=== PATIENT | female | born 1950 | race Caucasian/White ===

== ENCOUNTER → 2017-10-20 14:25 | Outpatient (CLI) | payer MEDICARE, SELFPAY | PROVIDERS: PCP Internal Medicine; Visit Provider Internal Medicine Cardiovascular Disease | DX: R06.83 Snoring; E66.01 Morbid (severe) obesity due to excess calories; I11.9 Hypertensive heart disease without heart failure; G47.10 Hypersomnia, unspecified | CPT/HCPCS: G0399 ==

== ENCOUNTER → 2018-06-13 09:32 | Outpatient (CLI) | payer MEDICARE, SELFPAY ==
--- NOTE | 2018-06-13 09:41 | US_ITS ---
Right upper Quadrant pain, patient had cholecystectomy several years ago Ordering Physician:Gary Thacker Patient Age: 67 years Comparison: 12/19/2009 CT abdomen and pelvis Findings: Pancreas:Unremarkable. No obvious mass or abnormal fluid collection. No ductal dilatation Liver:No focal liver lesions demonstrated. Homogeneous echogenicity. No intrahepatic biliary ductal dilatation evident there is diffuse increased and somewhat coarsened echogenicity consistent with diffuse fatty infiltration. There are no focal lesions. Right Kidney:Unremarkable. Normal size and echogenicity. No hydronephrosis. The right kidney measures 10.7 x 5.5 x 7.3 cm and shows mild uniform cortical thinning. Gallbladder: Post cholecystectomy Impression:Moderate diffuse hepatic steatosis, mild uniform renal cortical thinning right kidney
== END ==
PROVIDERS: PCP Internal Medicine; Visit Provider Internal Medicine
DX: R10.11 Right upper quadrant pain (principal)
CPT/HCPCS: 76705

== ENCOUNTER → 2018-06-21 14:54 | Outpatient (CLI) | payer MEDICARE, SELFPAY ==
--- NOTE | 2018-06-21 14:56 | CT_ITS ---
CT abdomen pelvis wo con CLINICAL INDICATION: Right upper quadrant pain ITS.REASON: ABD PAIN ORDERING PHYSICIAN: Gary Thacker PATIENT AGE: 67 years COMPARISON: 12/19/2009 TECHNIQUE: Axial images obtained with sagittal and coronal reformats. All CT scans at the facility use one or more dose reduction, viz: automated exposure control, ma/kV adjustment per patient size (including targeted exams where dose is matched to indication, i.e. head), or iterative reconstruction technique. PROCEDURE: Oral Contrast: None IV Contrast: None . FINDINGS: No acute finding in the lung bases. Postcholecystectomy change. The liver, spleen, adrenal glands, and kidneys show no acute finding. There is mild stranding of the right perinephric renal fat which is nonspecific. A small fat density is noted in the anterior aspect of the right kidney at 6 mm and may represent an angiomyolipoma having benign findings. There has been prior gastric surgery. There is postsurgical change of the intra-abdominal wall with significant thinning and eventration as before. No intestinal obstruction or free air is evident. No evidence of appendicitis or diverticulitis. No abdominal or pelvic mass or abnormal fluid collection. There are degenerative changes in the lumbar spine. A small sclerotic focus involves the right aspect of the sacrum in fairly and may represent bone island not significant change. There are posthysterectomy changes. No pelvic mass abnormal fluid collection or focal inflammatory change. IMPRESSION: No change with no acute finding. Postsurgical changes from prior gastric surgery, cholecystectomy, and hysterectomy with eventration of the anterior abdominal wall
--- NOTE | 2018-06-21 15:15 | HMH.ITSHM ---
Current Home Medications as stated by this patient Kendra Rosario or claims representative. []ASPIRIN LIPITOR VITAMIN D CO Q-10 CARDURA FENOFIBRATE LASIX AMARYL NOVOLOG FLEXPEN INSULIN PEN NEEDLE IMDUR SYNTHORID,LEVOTHROID VICTOZA COZAAR GLUCOPHAGE TOPROL NITROSTAT FISH OIL PRILOSEC K-DUR,KLOR-CON
== END ==
PROVIDERS: PCP Internal Medicine; Visit Provider Internal Medicine
DX: R10.11 Right upper quadrant pain (principal); R10.84 Generalized abdominal pain
CPT/HCPCS: 74176

== ENCOUNTER → 2018-07-04 15:05 | Outpatient (POV) | payer MEDICARE, SELFPAY | PROVIDERS: Visit Provider Dermatology | DX: Z00.00 Encounter for general adult medical examination without abnormal findings (principal) ==

== ENCOUNTER → 2018-09-18 11:27 | Outpatient (POV) | payer MEDICARE, SELFPAY | PROVIDERS: PCP Nurse Practitioner Family; Visit Provider Nurse Practitioner Family | DX: Z00.00 Encounter for general adult medical examination without abnormal findings (principal) ==

== ENCOUNTER → 2019-04-09 14:19 | Outpatient (POV) | payer MEDICARE, SELFPAY | PROVIDERS: Visit Provider Nurse Practitioner Family | DX: Z00.00 Encounter for general adult medical examination without abnormal findings (principal) ==

== ENCOUNTER → 2019-08-24 09:48 | Outpatient (CLI) | payer MEDICARE, SELFPAY ==
--- NOTE | 2019-08-24 | CA_ITS ---
APPROVED REPORT EXAM: Comprehensive 2D, Doppler, and color-flow Echocardiogram Medical Science Liaison: Enedelia Sevilla RT(R) Ht: 5 ft 7 in Wt: 250lbs BSA: 2.22 BP: 171/77 mmHg Indications: HTN, obesity, DM, SOB, GERD, hyperlipidemia 2D Dimensions LVOT 1.96 cm (M/F) 1.5-2.5 M-Mode Dimensions RVDd 2.44 cm (0.9-2.6) LVDd 5.11 cm (3.5-5.7) LVDs 3.51 cm (3.5-5.7) IVSd 1.18 cm (0.6-1.1) PWd 0.91 cm (0.6-1.1) EF (Teich) 58.80% FS 31.30% EDV (Teich) 124.40 mL ESV (Teich) 51.20 mL LV Diastology E/A Ratio 0.94 Mitral Valve MV A Velocity 124.00 (40-130 cm/s) Left Ventricle Left atrium is mildly enlarged, left ventricle is normal size, mild concentric left ventricular hypertrophy, visually estimated ejection fraction 55% with no regional wall motion abnormality, grade 1 diastolic dysfunction seen with tissue Doppler evidence of raise left atrial pressure. Right Ventricle Right atrium and right ventricle are mildly enlarged with normal contractility. Aortic Valve Aortic valve is minimally thickened and fibrosed, there is no aortic stenosis or aortic insufficiency. Mitral Valve Mitral valve is grossly normal, there is mild mitral regurgitation. Tricuspid Valve Tricuspid valve is grossly normal, there is mild tricuspid regurgitation. Pulmonic Valve Pulmonic valve is poorly visualized. Great Vessels Aortic root is normal size. Pericardium Trivial pericardial effusion noted. Conclusion 1. Mild biatrial enlargement, normal left ventricular size, mild concentric left ventricular hypertrophy, visually estimated ejection fraction 55% with no regional wall motion abnormality, grade 1 diastolic dysfunction seen with tissue Doppler evidence of raise left atrial pressure. 2. Mildly enlarged right ventricle with normal contractility. 3. Mild mitral and tricuspid regurgitation. 4. Trivial pericardial effusion noted. Electronically signed by : Flip Hamm, 08/24/2019 11:52:36
--- NOTE | 2019-08-24 11:21 | XR_ITS ---
PROCEDURE: XR CHEST 2V CLINICAL HISTORY: SOA,HTN COMPARISON: CXR CHEST(2 VIEWS-NOT PORTABLE) from 07/12/2016 FINDINGS: The cardiomediastinal silhouette and pulmonary vascularity are within normal limits. The lungs are clear without infiltrates, suspicious nodules, or pleural effusions. Degenerative changes thoracic IMPRESSION: No acute findings. Dictated by: Timoteo Stewart MD 08/24/2019 11:58 Electronically signed by Timoteo Stewart MD in [place] 08/24/2019 11:58
== END ==
PROVIDERS: PCP Internal Medicine; Visit Provider Internal Medicine
DX: R06.02 Shortness of breath (principal)
CPT/HCPCS: 71046; 93306; 94060; 94727; 94729

== ENCOUNTER → 2019-09-17 14:05 | Outpatient (POV) | payer MEDICARE, SELFPAY | PROVIDERS: Visit Provider Nurse Practitioner Family | DX: Z00.00 Encounter for general adult medical examination without abnormal findings (principal) ==

== ENCOUNTER → 2019-11-30 15:45 | Outpatient (CLI) | payer MEDICARE, SELFPAY | PROVIDERS: Visit Provider Urology | DX: N39.0 Urinary tract infection, site not specified (principal); N35.92 Unspecified urethral stricture, female | CPT/HCPCS: 87086; 87088; 87186 ==

== ENCOUNTER → 2019-12-27 14:46 | Outpatient (CLI) | payer MEDICARE, SELFPAY | PROVIDERS: Visit Provider Urology | DX: N30.30 Trigonitis without hematuria (principal) | CPT/HCPCS: 87086 ==

== ENCOUNTER → 2020-03-24 13:59 | Outpatient (POV) | payer MEDICARE, SELFPAY | PROVIDERS: Visit Provider Nurse Practitioner Family | DX: Z00.00 Encounter for general adult medical examination without abnormal findings (principal) ==

== ENCOUNTER → 2021-03-30 14:44 | Outpatient (CLI) | payer MEDICARE, SELFPAY ==
[2021-03-30 15:55] LABS: Basophils % 0.5 % (0.1-2.0); Eosinophils # 0.1 K/mm3 (0.0-0.4); Eosinophils % 1.7 % (0.1-12.0); Hematocrit 42.2 % (37.0-47.0); Hemoglobin 13.4 g/dL (12.2-16.2); Lymphocytes % 31.5 % (10-50); Mean Corpuscular HGB Conc 31.8 g/dL (31.8-35.4); Mean Corpuscular Hemoglobin 30.8 pg (27.0-31.2); Mean Corpuscular Volume 96.9 fl (81-99); Mean Platelet Volume 9.2 fl (7.4-10.4); Monocytes # 0.3 K/mm3 (0.1-1.0); Monocytes % 4.9 % (1.7-9.3); Neutrophils % 61.4 % (37.0-80.0); Platelet Count 232 K/mm3 (142-424); Red Blood Count 4.35 M/mm3 (4.20-5.40); Red Cell Distribution Width 13.5 % (11.5-17.5); White Blood Count 6.4 K/mm3 (4.8-10.8)
[2021-03-30 16:21] LABS: Microalbumin < 6.000 mg/L (0-16.7)
[2021-03-30 16:37] LABS: Alanine Aminotransferase 26 U/L (12-78); Albumin Level 4.3 g/dl (3.5-5.0); Albumin/Globulin Ratio 2.2 (1.1-1.8); Alkaline Phosphatase 65 U/L (38-126); Anion Gap 10.4 mEq/L (5-15); Aspartate Amino Transferase 28 U/L (14-36); Bilirubin,Total 0.6 mg/dl (0.2-1.3); Blood Urea Nitrogen 16 mg/dl (7-17); Calcium 9.8 mg/dl (8.4-10.2); Carbon Dioxide 27 mmol/L (22.0-30.0); Chloride 104 mmol/L (98-107); Chol/HDL Ratio 2.3 (1-3.5); Cholesterol 126 mg/dl (140-200); Estimated Glomerular Filt Rate 99 ml/min (>60); GFR (African American) 120 ML/MIN (>60); Glucose 86 mg/dl (74-100); HDL Cholesterol 55 mg/dl (40-60); Potassium 4.4 mmoL/L (3.5-5.1); Sodium 137 mmol/L (136-145); Total Protein,Serum 6.3 g/dl (6.3-8.2); Triglycerides 103 mg/dl (30-150); VLDL Cholesterol 21 mg/dL (0-40)
[2021-03-30 16:48] LABS: Direct LDL Cholesterol 54.94 mg/dL (100-129)
[2021-03-30 16:50] LABS: Hemoglobin A1C 5.2 % (4.0-6.0)
[2021-03-30 16:54] LABS: Free T4 (Free Thyroxine) 1.12 ng/dl (0.78-2.19)
[2021-03-30 17:08] LABS: Thyroid Stimulating Hormone 0.94 uIU/mL (0.465-4.68)
== END ==
PROVIDERS: PCP Internal Medicine; Visit Provider Internal Medicine
DX: I10 Essential (primary) hypertension (principal); E11.59 Type 2 diabetes mellitus with other circulatory complications; E78.5 Hyperlipidemia, unspecified; E03.9 Hypothyroidism, unspecified; Z79.4 Long term (current) use of insulin
CPT/HCPCS: 36415; 80053; 80061; 82043; 83036; 84439; 84443; 85025

== ENCOUNTER → 2021-10-20 13:25 | Outpatient (POV) | payer MEDICARE, SELFPAY | PROVIDERS: Visit Provider Dermatology | DX: Z00.00 Encounter for general adult medical examination without abnormal findings (principal) ==

== ENCOUNTER → 2021-11-10 12:59 | Outpatient (POV) | payer MEDICARE, SELFPAY | PROVIDERS: Visit Provider Dermatology | DX: Z00.00 Encounter for general adult medical examination without abnormal findings (principal) ==

== ENCOUNTER → 2021-11-24 13:27 | Outpatient (POV) | payer MEDICARE, SELFPAY | PROVIDERS: Visit Provider Dermatology | DX: Z00.00 Encounter for general adult medical examination without abnormal findings (principal) ==

== ENCOUNTER → 2022-01-14 15:20 | Outpatient (CLI) | payer MEDICARE, SELFPAY ==
[2022-01-14 17:28] LABS: Basophils # 0.1 K/mm3 (0-0.2); Basophils % 0.9 % (0.1-2.0); Chloride 101 mmol/L (98-107); Eosinophils # 0.1 K/mm3 (0.0-0.4); Eosinophils % 1.1 % (0.1-12.0); Hematocrit 41.4 % (37.0-47.0); Hemoglobin 13.7 g/dL (12.2-16.2); Lymphocytes # 1.9 K/mm3 (0.7-4.5); Lymphocytes % 27.1 % (10-50); Mean Corpuscular HGB Conc 33.1 g/dL (31.8-35.4); Mean Corpuscular Hemoglobin 31.4 pg (27.0-31.2); Mean Corpuscular Volume 94.9 fl (81-99); Monocytes # 0.3 K/mm3 (0.1-1.0); Monocytes % 4.1 % (1.7-9.3); Neutrophils # 4.7 K/mm3 (1.8-7.8); Neutrophils % 66.8 % (37.0-80.0); Platelet Count 267 K/mm3 (142-424); Potassium 4.5 mmoL/L (3.5-5.1); Red Blood Count 4.36 M/mm3 (4.20-5.40); Red Cell Distribution Width 13.4 % (11.5-17.5); Sodium 138 mmol/L (136-145)
[2022-01-14 17:30] LABS: Blood Urea Nitrogen 33 mg/dl (7-17)
[2022-01-14 17:31] LABS: Alanine Aminotransferase 22 U/L (12-78); Albumin/Globulin Ratio 1.9 (1.1-1.8); Alkaline Phosphatase 83 U/L (38-126); Anion Gap 14.5 mEq/L (5-15); Aspartate Amino Transferase 28 U/L (14-36); Bilirubin,Total 0.3 mg/dl (0.2-1.3); Calcium 10.3 mg/dl (8.4-10.2); Carbon Dioxide 27 mmol/L (22.0-30.0); Cholesterol 137 mg/dl (140-200); Estimated Glomerular Filt Rate 83 ml/min (>60); GFR (African American) 100 ML/MIN (>60); Globulin 2.1 g/dL (1.3-3.2); Glucose 105 mg/dl (74-100); Total Protein,Serum 6.1 g/dl (6.3-8.2); Triglycerides 325 mg/dl (30-150); VLDL Cholesterol 65 mg/dL (0-40)
[2022-01-14 17:32] LABS: Chol/HDL Ratio 3.2 (1-3.5); HDL Cholesterol 43 mg/dl (40-60)
== END ==
PROVIDERS: PCP Family Medicine; Visit Provider Family Medicine
DX: I10 Essential (primary) hypertension (principal); E11.9 Type 2 diabetes mellitus without complications; Z79.4 Long term (current) use of insulin
CPT/HCPCS: 80053; 80061; 83036; 84443; 85025

== ENCOUNTER → 2022-03-31 10:48 | Outpatient (CLI) | payer MEDICARE, SELFPAY ==
--- NOTE | 2022-03-31 10:49 | MM_ITS ---
PROCEDURE INFORMATION: Exam: MG Bilateral Screening 3D Mammography Exam date and time: 03/31/2022 10:41 AM Age: 71 years old Clinical indication: Screening examination TECHNIQUE: Imaging protocol: Bilateral Screening tomosynthesis and 2D mammography including computer-aided detection (CAD) when performed. COMPARISON: 1. MG DMDXUAVR DIG MAMM-DX UNI A/VW-RT W/CAD 02/04/2017 2:42 PM 2. MG DMSB DIG MAMM-SCREEN LOIS W/CAD 01/24/2017 5:01 PM FINDINGS: MAMMOGRAPHY: Breast composition: There are scattered areas of fibroglandular density. Mass: None. Architectural distortion: None. Calcifications: No suspicious calcifications. Asymmetric density: None. Skin thickening: None. Axillary adenopathy: None. IMPRESSION: No mammographic evidence of malignancy. Annual screening is recommended unless otherwise clinically indicated. ASSESSMENT: BI-RADS Category 1: Negative
== END ==
PROVIDERS: PCP Family Medicine; Visit Provider Family Medicine
DX: Z12.31 Encounter for screening mammogram for malignant neoplasm of breast (principal)
CPT/HCPCS: 77063; 77067

== ENCOUNTER → 2022-04-29 21:53 | Outpatient (CLI) | payer MEDICARE, SELFPAY | PROVIDERS: PCP Student in an Organized Health Care Education/Training Program; Visit Provider Student in an Organized Health Care Education/Training Program | DX: N39.0 Urinary tract infection, site not specified (principal) | CPT/HCPCS: 87086 ==

== ENCOUNTER → 2022-11-04 11:08 | Outpatient (CLI) | payer MEDICARE, SELFPAY ==
--- NOTE | 2022-11-04 | CA_ITS ---
APPROVED REPORT EXAM: Comprehensive 2D, Doppler, and color-flow Echocardiogram Electrodynamicist: Brittaney Guardado CRT Ht: 5 ft 7 in Wt: 213lbs BSA: 2.08 BP: 170/70 mmHg Indications: Shortness of Breath, Diabetes, Obesity, Hyperlipidemia, Hypertension/HDD 2D Dimensions LVOT 1.97 cm (M/F) 1.5-2.5 LA Volume 60.70 mL LA Volume Index 29.18 mL/m2 (M/F) 16-34 M-Mode Dimensions RVDd 3.32 cm (0.9-2.6) LA Diam 4.07 cm (1.9-4.0) LVDd 5.39 cm (3.5-5.7) Ao Diam 3.88 cm (2.0-3.7) LVDs 3.18 cm (3.5-5.7) IVSd 1.29 cm (0.6-1.1) PWd 0.93 cm (0.6-1.1) EF (Teich) 71.40% FS 41.00% EDV (Teich) 140.70 mL TAPSE 2.71 (<1.7) ESV (Teich) 40.30 mL LV Diastology E Decel Time 213.00 (160-240 msec) E/A Ratio 0.9 MED E' 6.20 (< 7 cm/sec) MED A' 10.80 cm/s E'/MED E' Ratio 14.90 (>14) LAT E' 7.90 (<10 cm/sec) LAT A' 9.40 cm/s E/LAT E' Ratio 11.70 (>14) Aortic Valve AI PHT 411.00 ms AO Peak GR. 10.50 mmHg Mitral Valve MV E Max Heraclio. 92.00 (40-130 cm/s) MV A Velocity 104.00 (40-130 cm/s) E/A Ratio 0.89 MV Decel. Time 213.00 (160-240 ms) MV PHT 62.00 ms Tricuspid Valve TR P. Velocity 206.00 cm/s RAP Estimate 10.00 mmHg RVSP 27.00 mmHg Left Ventricle The left ventricle is normal size. The left ventricular systolic function is normal. The left ventricular ejection fraction is within the normal range. There is increased LV wall thickness. There is normal LV segmental wall motion. The left ventricular diastolic function is normal. LVEF is 60%. Right Ventricle The right ventricle is normal size. The right ventricular systolic function is normal. Atria The left atrium size is normal. The right atrium size is normal. There is no Doppler evidence of interatrial shunt. Aortic Valve The aortic valve is mildly thickened. There is no aortic valvular stenosis. Trace aortic regurgitation. Mitral Valve The mitral valve is mildly thickened. No evidence of mitral valve stenosis. Trace mitral regurgitation. Tricuspid Valve The tricuspid valve leaflets are thin and pliable. Trace tricuspid regurgitation. RVSP is 20-25 mmHg. Pulmonic Valve The pulmonary valve is normal in structure. Trace pulmonic regurgitation. Great Vessels The aortic root is normal in size. The ascending aorta is normal in size. IVC is dilated but collapses >50% with inspiration. RA pressure is estimated at 8 mmHg. Pericardium There is no pericardial effusion. Other Information Study Quality: Fair Conclusion Normal biventricular systolic function. No significant valvular stenosis or regurgitation. Electronically signed by : Lizbeth Marx, 11/05/2022 15:39:06
== END ==
PROVIDERS: PCP Student in an Organized Health Care Education/Training Program; Visit Provider Internal Medicine
DX: R06.02 Shortness of breath (principal); I10 Essential (primary) hypertension
CPT/HCPCS: 93306

== ENCOUNTER 2023-06-07 20:48 | Outpatient (CLI) | payer MEDICARE, SELFPAY ==
[2023-06-07 17:58] LABS: Basophils % 0.7 % (0.1-2.0); Eosinophils # 0.1 K/mm3 (0.0-0.4); Eosinophils % 1.1 % (0.1-12.0); Hematocrit 45.8 % (37.0-47.0); Hemoglobin 14.7 g/dL (12.2-16.2); Lymphocytes # 1.9 K/mm3 (0.7-4.5); Lymphocytes % 33.5 % (10-50); Mean Corpuscular HGB Conc 32.1 g/dL (31.8-35.4); Mean Corpuscular Hemoglobin 31.4 pg (27.0-31.2); Mean Corpuscular Volume 97.7 fl (81-99); Mean Platelet Volume 9.2 fl (7.4-10.4); Monocytes # 0.3 K/mm3 (0.1-1.0); Monocytes % 4.5 % (1.7-9.3); Neutrophils # 3.4 K/mm3 (1.8-7.8); Neutrophils % 60.3 % (37.0-80.0); Platelet Count 241 K/mm3 (142-424); Red Blood Count 4.69 M/mm3 (4.20-5.40); Red Cell Distribution Width 13.8 % (11.5-17.5); White Blood Count 5.7 K/mm3 (4.8-10.8)
[2023-06-07 18:36] LABS: Hemoglobin A1C 5.5 % (4.0-6.0)
[2023-06-07 18:47] LABS: Chloride 106 mmol/L (98-107)
[2023-06-07 18:48] LABS: Potassium 4.3 mmoL/L (3.5-5.1); Sodium 140 mmol/L (136-145)
[2023-06-07 18:50] LABS: Alanine Aminotransferase 22 U/L (12-78); Alkaline Phosphatase 79 U/L (38-126); Anion Gap 9.3 mEq/L (5-15); Aspartate Amino Transferase 29 U/L (14-36); Bilirubin,Total 0.6 mg/dl (0.2-1.3); Blood Urea Nitrogen 20 mg/dl (7-17); Carbon Dioxide 29 mmol/L (22.0-30.0); Cholesterol 246 mg/dl (140-200); Estimated Glomerular Filt Rate 122 ml/min (>60); GFR (African American) 148 ML/MIN (>60); Triglycerides 132 mg/dl (30-150); VLDL Cholesterol 26 mg/dL (0-40)
[2023-06-07 18:51] LABS: Albumin Level 4.1 g/dl (3.5-5.0); Albumin/Globulin Ratio 1.8 (1.1-1.8); Calcium 9.7 mg/dl (8.4-10.2); Chol/HDL Ratio 5.5 (1-3.5); Globulin 2.3 g/dL (1.3-3.2); Glucose 96 mg/dl (74-100); HDL Cholesterol 45 mg/dl (40-60); Total Protein,Serum 6.4 g/dl (6.3-8.2)
[2023-06-07 19:16] LABS: Direct LDL Cholesterol 129.86 mg/dL (100-129)
[2023-06-07 19:26] LABS: Thyroid Stimulating Hormone 4.39 uIU/mL (0.465-4.68)
[2023-06-07 20:23] LABS: 25-OH Vitamin D, Total 125 ng/mL (30-100)
== END 2023-06-07 23:59 ==
LOC: LAB.DROPOF 20:49
PROVIDERS: PCP Nurse Practitioner Family; Visit Provider Nurse Practitioner Family
DX: E11.9 Type 2 diabetes mellitus without complications (principal); I10 Essential (primary) hypertension; E55.9 Vitamin D deficiency, unspecified; R53.83 Other fatigue; Z68.33 Body mass index [BMI] 33.0-33.9, adult; Z79.4 Long term (current) use of insulin; Z79.84 Long term (current) use of oral hypoglycemic drugs
CPT/HCPCS: 80053; 80061; 82306; 83036; 84443; 85025

== ENCOUNTER 2023-06-20 22:50 | Outpatient (CLI) | payer MEDICARE, SELFPAY | END 2023-06-20 23:59 | LOC: LAB.DROPOF 22:54 | PROVIDERS: PCP Family Medicine; Visit Provider Family Medicine | DX: J02.9 Acute pharyngitis, unspecified (principal) | CPT/HCPCS: 87070 ==

== ENCOUNTER 2024-06-29 09:01 | Outpatient (CLI) | payer MEDICARE, SELFPAY ==
[2024-06-29 18:27] LABS: Basophils % 0.6 % (0.1-2.0); Eosinophils # 0.1 Kmm3 (0.0-0.4); Eosinophils % 1.6 % (0.1-12.0); Hematocrit 43.8 % (37.0-47.0); Hemoglobin 14.7 g/dL (12.2-16.2); Lymphocytes # 1.6 K/mm3 (0.7-4.5); Lymphocytes % 30.6 % (10-50); Mean Corpuscular HGB Conc 33.6 g/dL (31.8-35.4); Mean Corpuscular Hemoglobin 30.4 pg (27.0-31.2); Mean Corpuscular Volume 90.7 fl (81-99); Mean Platelet Volume 10.6 fl (7.4-10.4); Monocytes # 0.3 K/mm3 (0.1-1.0); Monocytes % 5.9 % (1.7-9.3); Neutrophils # 3.1 K/mm3 (1.8-7.8); Neutrophils % 61.1 % (37.0-80.0); Nucleated Red Blood Cells # 0 10^3/uL; Nucleated Red Blood Cells % 0 %; Platelet Count 213 K/mm3 (142-424); Red Blood Count 4.83 M/mm3 (4.20-5.40); Red Cell Distribution Width 13.2 % (11.5-17.5); Red Cell Distribution Width-SD 43.4 fL; White Blood Count 5.1 K/mm3 (4.8-10.8)
[2024-06-29 18:33] LABS: Creatinine,Urine Random 95 mg/dL (Not Estab.)
[2024-06-29 18:37] LABS: Microalbumin/Creatinine Ratio 12.2
[2024-06-29 19:05] LABS: Albumin Level 4.2 g/dl (3.5-5.0); Chloride 108 mmol/L (98-107); Sodium 139 mmol/L (136-145)
[2024-06-29 19:07] LABS: Alanine Aminotransferase 19 U/L (12-78); Aspartate Amino Transferase 24 U/L (14-36); Blood Urea Nitrogen 14 mg/dl (7-17); Carbon Dioxide 24 mmol/L (22.0-30.0); Estimated Glomerular Filt Rate 122 ml/min (>60); GFR (African American) 147 ML/MIN (>60)
[2024-06-29 19:08] LABS: Albumin/Globulin Ratio 1.9 (1.1-1.8); Alkaline Phosphatase 71 U/L (38-126); Bilirubin,Total 0.7 mg/dl (0.2-1.3); Calcium 9.5 mg/dl (8.4-10.2); Chol/HDL Ratio 3.2 (1-3.5); Cholesterol 193 mg/dl (140-200); Globulin 2.2 g/dL (1.3-3.2); Glucose 95 mg/dl (74-100); HDL Cholesterol 60 mg/dl (40-60); Total Protein,Serum 6.4 g/dl (6.3-8.2); Triglycerides 97 mg/dl (30-150); VLDL Cholesterol 19 mg/dL (0-40)
[2024-06-29 19:20] LABS: Direct LDL Cholesterol 99.79 mg/dL (100-129)
[2024-06-29 19:34] LABS: 25-OH Vitamin D, Total > 126 ng/mL (30-100)
[2024-06-29 19:38] LABS: Thyroid Stimulating Hormone 7.77 uIU/mL (0.465-4.68)
== END 2024-06-29 23:59 | disposition home or self-care (01) ==
LOC: LAB.DROPOF 07-02 09:02
PROVIDERS: PCP Family Medicine; Visit Provider Family Medicine
DX: I10 Essential (primary) hypertension (principal); N39.0 Urinary tract infection, site not specified; E55.9 Vitamin D deficiency, unspecified; E11.9 Type 2 diabetes mellitus without complications; Z79.84 Long term (current) use of oral hypoglycemic drugs
CPT/HCPCS: 80053; 80061; 82043; 82306; 82570; 84443; 85025; 87086

== ENCOUNTER 2024-08-01 15:50 | Outpatient (CLI) | payer MEDICARE, SELFPAY ==
--- NOTE | 2024-08-01 15:54 | XR_ITS ---
FINAL REPORT CLINICAL HISTORY: arm pain FINDINGS: RIGHT HUMERUS Two views were obtained. There is no fracture or dislocation. The joint spaces appear normal. No soft tissue abnormality is identified. IMPRESSION: No acute process. Reviewed, Interpreted and Dictated by Selvin Farris MD Transcribed by Tamela Cheng Authenticated and [facility]
--- NOTE | 2024-08-01 15:54 | XR_ITS ---
FINAL REPORT CLINICAL HISTORY: arm pain FINDINGS: RIGHT SHOULDER Three views were obtained. There is no fracture or dislocation. There are mild degenerative changes of the AC joint. No soft tissue abnormality is identified. IMPRESSION: No acute process. Reviewed, Interpreted and Dictated by Selvin Farris MD Transcribed by Tamela Cheng Authenticated and [facility]
== END 2024-08-01 23:59 | disposition home or self-care (01) ==
LOC: RAD 15:51
PROVIDERS: PCP Family Medicine; Visit Provider Family Medicine
DX: M79.621 Pain in right upper arm (principal); M19.011 Primary osteoarthritis, right shoulder
CPT/HCPCS: 73030; 73060

== ENCOUNTER 2024-11-07 11:50 | Outpatient (CLI) | payer MEDICARE, SELFPAY ==
[2024-11-07 17:36] LABS: Albumin Level 4.3 g/dl (3.5-5.0); Chloride 111 mmol/L (98-107); Potassium 4.1 mmoL/L (3.5-5.1); Sodium 141 mmol/L (136-145)
[2024-11-07 17:39] LABS: Alanine Aminotransferase 18 U/L (12-78); Albumin/Globulin Ratio 2.0 (1.1-1.8); Alkaline Phosphatase 70 U/L (38-126); Anion Gap 10.1 mEq/L (5-15); Aspartate Amino Transferase 25 U/L (14-36); Bilirubin,Total 0.5 mg/dl (0.2-1.3); Blood Urea Nitrogen 17 mg/dl (7-17); Carbon Dioxide 24 mmol/L (22.0-30.0); Creatinine,Serum 0.50 mg/dl (0.52-1.04); Estimated Glomerular Filt Rate 121 ml/min (>60); GFR (African American) 147 ML/MIN (>60); Globulin 2.1 g/dL (1.3-3.2); Total Protein,Serum 6.4 g/dl (6.3-8.2)
[2024-11-07 17:40] LABS: Calcium 9.4 mg/dl (8.4-10.2); Glucose 105 mg/dl (74-100)
[2024-11-07 18:11] LABS: Thyroid Stimulating Hormone 2.13 uIU/mL (0.465-4.68)
[2024-11-07 19:38] LABS: 25-OH Vitamin D, Total 105 ng/mL (30-100)
[2024-11-07 21:06] LABS: Hemoglobin A1C 5.4 % (4.0-6.0)
--- OUTSIDE RECORDS SUMMARY | 2024-11-08 12:09 | XMS_ITS | Clinical Summary ---
[facility] Address [address] [place] [address] Care Team Providers Care Crucible Packer Name Role Phone Gary Thacker MD Primary Care Provider [phone] Allergies No known active allergies Medications aspirin 81 MG tablet Take by mouth. 01/12/20 12 Active Coenzyme Q10 (CO Q-10) 100 MG capsule Take by mouth. 01/12/20 12 Active [place]-3 Fatty Acids (FISH OIL) 1000 MG capsule capsule Take by mouth. 01/12/20 12 Active Cholecalciferol (VITAMIN D) 1000 UNITS tablet Take by mouth. 03/01/20 14 Active nitroglycerin (NITROSTAT) 0.[address] 1 tablet under the tongue every 5 (five) minutes as needed for chest pain. Dissolve 1 tablet under the as needed for chest pain 25 tablet 3 10/03/19 16 Active isosorbide mononitrate (IMDUR) 30 MG 24 hr tablet 01/19/20 17 Active Insulin Pen Needle 32G X 5 MM misc 1 Units 6 (Six) Times a Day. 600 each 1 06/17/19 18 Active atorvastatin (LIPITOR) 40 MG tablet Take 1 tablet by mouth Daily. 90 tablet 1 07/30/19 18 Active fenofibrate 160 MG tablet Take 1 tablet by mouth Daily. 90 tablet 1 07/30/19 18 Active levothyroxine (SYNTHROID, LEVOTHROID) 75 MCG tablet Take 1 tablet by mouth Daily. 30 tablet 1 07/30/19 18 Active metFORMIN (GLUCOPHAGE) 500 MG tablet Take 2 tablets by mouth 2 (Two) Times a Day. 360 tablet 1 07/30/19 18 Active metoprolol succinate XL (TOPROL-XL) 50 MG 24 hr tablet Take 1 tablet by mouth 2 (Two) Times a Day. 180 tablet 1 07/30/19 18 Active Additional Information Patient taking differently: 100 mgOral 2 Times Daily, Reported on 11/18/2017 omeprazole (priLOSEC) 40 MG capsule Take 1 capsule by mouth Daily. 90 capsule 1 07/30/19 18 Active potassium chloride (K-DUR,KLOR-CON) 20 MEQ CR tablet Take 1 tablet by mouth Daily. 90 tablet 1 07/30/19 18 Active glimepiride (AMARYL) 4 MG tablet Take 1 tablet by mouth 2 (Two) Times a Day. 180 tablet 1 08/28/19 18 Active furosemide (LASIX) 40 MG tablet Take 40 mg by mouth 2 (Two) Times a Day. Active Liraglutide (VICTOZA) 18 MG/3ML solution pen-injector injection Inject 1.2 mg under the skin into the appropriate area as directed Daily. 6 pen 3 05/20/19 Active doxazosin (CARDURA) 2 MG tablet Take 2 mg by mouth 2 (Two) Times a Day. Active NOVOLOG FLEXPEN 100 UNIT/ML solution pen-injector sc pen Inject 30 units TID with meals 90 mL 1 01/05/20 19 Active ONE TOUCH ULTRA TEST test strip Test blood sugars TID 300 each 3 01/05/20 19 Active losartan (COZAAR) 100 MG tablet Take 1 tablet by mouth Daily. 90 tablet 1 01/05/20 19 Active busPIRone (BUSPAR) 10 MG tablet Take 10 mg by mouth 2 (Two) Times a Day. 5 11/07/19 19 Active FLUZONE HIGH-DOSE 0.5 ML suspension prefilled syringe injection PHARMACIST ADMINISTERED IMMUNIZATION ADMINISTERED AT TIME OF DISPENSING 0 11/07/19 19 Active SHINGRIX 50 MCG/0.5ML reconstituted suspension PHARMACIST ADMINISTERED IMMUNIZATION ADMINISTERED AT TIME OF DISPENSING 0 11/07/19 19 Active ONE TOUCH ULTRA TEST test strip Test blood sugars 3 times per day 300 each 3 01/05/20 19 Active Active Problems Problem Noted Date Diagnosed Date Forrest's esophagus with low grade dysplasia Assessment & Plan (06/11/2016 11:30 AM EDT): Pending evaluation Dr Prather Has dysplasia and they want to do ablation but insurance will not cover Acute cystitis 11/28/2015 Acute myocardial infarction 11/28/2015 Abnormal liver function tests 08/01/2015 Overview (08/01/2015): Impression: 11/08/2014 - update flp Impression: 07/05/2014 - normal at last check , continue to monitor Impression: 07/06/2013 - normal at last check , continue to monitor; Assessment & Plan (11/18/2017 3:33 PM EDT): Patient states intermittent binge drinking (vodka) - associates with severe increase in appetite and binging on food including sweets Calories assoc with alcohol reviewed and encouraged her to discontinue this She does not have to drink every night She attributes this to failure to lose weight Assessment & Plan (07/29/2017 11:33 AM EDT): Check cmp Assessment & Plan (01/28/2017 10:58 AM EST): Having some ruq abdominal pain Trying to lose weight Assessment & Plan (10/15/2016 11:48 AM EDT): Liver function tests normal last check Assessment & Plan (08/01/2015 1:00 PM EDT): Check cmp Arthritis 08/01/2015 Atherosclerosis of coronary artery 08/01/2015 Diabetes mellitus 08/01/2015 Overview (08/01/2015): Impression: 11/08/2014 - blood sugar 191, hgn a1c 6.1% average sugar 120 is up to date with preventive care Impression: 07/05/2014 - blood sugar is 90, hgn a1c is 6.1% (average 120) is up to date with preventive care bp is good Impression: 04/19/2014 - blood sugar is 138 and hgn a1c is 6.1% (average 120) restart invokana at 100 mg daily and samples are provided stop hctz- discussed rationale for this with her continue victoza continue lisinpril but stop benazepril- duplicate therapy email update 1-2 weeks work on diet and exercise, weight loss Impression: 03/01/2014 - d/c glyburide add invokana increase victoza 1.2 mg daily continue metformin use insulin prn Impression: 11/09/2013 - blood sugar and average sugar are good is up to date with preventive care continue to monitor and adjust work on diet - discussed lose it or my fitness pal as a way to track calories/carbs Impression: 07/06/2013 - blood sugar is good, hgn a1c 6.6% (average 135 or so) doing well overall, no c/o is up to date with preventive care, no change in neuropathy ur alb due next visit no changes other than more intensive work on diet and weight loss (would improve diabetes, arthritis, etc) continue to monitor and recc my fitness pal or lose it apps; Assessment & Plan (01/05/2019 8:33 AM EDT): Blood sugar and 90 day average sugar reviewed Results for orders placed or performed in visit on 01/04/19 POC Glycosylated Hemoglobin (Hb A1C) Result Value Ref Range Hemoglobin A1C 5.2 % POC Glucose Fingerstick Result Value Ref Range Glucose 60 (A) 70 - 130 mg/dL Average sugar is normal Low sugar currently - treated with juice She was fasting today Is utd with eye exam No neuropathy, callus or ulcer Continue diet and add exercise F/u 3-4 months Assessment & Plan (05/19/2018 1:29 PM EST): Blood sugar and 90 day average sugar reviewed Results for orders placed or performed in visit on 05/19/18 POC Glycosylated Hemoglobin (Hb A1C) Result Value Ref Range Hemoglobin A1C 5.8 % POC Glucose Fingerstick Result Value Ref Range Glucose 128 70 - 130 mg/dL Is doing well overall No low sugars Is utd with eye exam No neuropathy, callus or ulcer Ur alb neg and due now Assessment & Plan (11/18/2017 3:32 PM EDT): Blood sugar and 90 day average sugar reviewed Results for orders placed or performed in visit on 11/18/17 POC Glycosylated Hemoglobin (Hb A1C) Result Value Ref Range Hemoglobin A1C 5.8 % POC Glucose Fingerstick Result Value Ref Range Glucose 137 (A) 70 - 130 mg/dL Average sugar remains well controlled Samples of victoza provided Is utd with eye exam No foot lesion Ur alb neg previously F/u 4-6 months Assessment & Plan (07/29/2017 11:32 AM EDT): Blood sugar and 90 day average sugar reviewed Results for orders placed or performed in visit on 07/29/17 POC Glycosylated Hemoglobin (Hb A1C) Result Value Ref Range Hemoglobin A1C 5.7 % POC Glucose Fingerstick Result Value Ref Range Glucose 157 (A) 70 - 130 mg/dL Average sugar is 110 She shredded victoza prescription She would like to restart this She is utd with eye exam No neuropathy Ur alb due today F/u 4-6 months Some right toe pain She is on keflex currently Assessment & Plan (01/28/2017 10:58 AM EST): Blood sugar and 90 day average sugar reviewed Results for orders placed or performed in visit on 01/28/17 POC Glycosylated Hemoglobin (Hb A1C) Result Value Ref Range Hemoglobin A1C 6.0 % POC Glucose Fingerstick Result Value Ref Range Glucose 150 (A) 70 - 130 mg/dL Doing well Reminded her to get updated eye exam No neuropathy Ur alb neg 05/28 F/u 4-6 months Assessment & Plan (10/15/2016 11:48 AM EDT): Blood sugar and 90 day average sugar reviewed Results for orders placed or performed in visit on 10/15/16 POC Glycosylated Hemoglobin (Hb A1C) Result Value Ref Range Hemoglobin A1C 6.1 % POC Glucose Fingerstick Result Value Ref Range Glucose 170 (A) 70 - 130 mg/dL Average sugar is 120 Is doing well overall Is utd with eye exam Neuropathy stable without callus or ulcer Ur alb neg 05/28 F/u 3- 4months Assessment & Plan (06/11/2016 11:28 AM EDT): Blood sugar and 90 day average sugar reviewed Results for orders placed or performed in visit on 06/11/16 POC Glycosylated Hemoglobin (Hb A1C) Result Value Ref Range Hemoglobin A1C 6.1 % POC Glucose Fingerstick Result Value Ref Range Glucose 157 (A) 70 - 130 mg/dL She is up to date with eye exam No neuropathy Ur alb neg - recheck due today Discussed diet and weight loss Quit covering bedtime sugar- lots of night time low Risk of dying in the night with low sugar discussed F/u 3 months Assessment & Plan (12/05/2015 12:50 PM EDT): Blood sugar and 90 day average sugar reviewed Results for orders placed or performed in visit on 12/05/15 POC Glucose Fingerstick Result Value Ref Range Glucose 101 70 - 130 mg/dL POC Glycosylated Hemoglobin (Hb A1C) Result Value Ref Range Hemoglobin A1C 5.9 % And is in good range She is up to date with preventive care No foot lesion Ur alb due next visit Assessment & Plan (08/01/2015 1:00 PM EDT): Blood sugars are good, reviewed hgn a1c 6.4% Is up to date with eye exam no change in foot exam- some pain with swelling ur alb due Hyperlipidemia 08/01/2015 Overview (08/01/2015): Impression: 03/21/2015 - check flp Impression: 11/08/2014 - check flp Impression: 07/05/2014 - check flp Impression: 04/19/2014 - check flp Impression: 11/09/2013 - continue current treatment Impression: 07/06/2013 - excellent lipid control at last check 02/23, will f/u next visit, continue current statin due to cad; Assessment & Plan (01/05/2019 8:26 AM EDT): Is on atorvastatin 40 mg daily Check flp today Continue low fat diet and try to add exercise to regimen Assessment & Plan (05/19/2018 1:28 PM EST): Check flp next ov - low fat diet and fibrate No other changes recommended Assessment & Plan (11/18/2017 3:30 PM EDT): Continue lipitor and fibrate- will discuss cheaper option for fibrate with pharmacy Last check 07/29 LDL 74 and tg 154 Assessment & Plan (07/29/2017 11:26 AM EDT): Update flp On fenofibrate and lipitor Assessment & Plan (01/28/2017 10:57 AM EST): Check flp Assessment & Plan (10/15/2016 11:44 AM EDT): Check flp Assessment & Plan (06/11/2016 11:22 AM EDT): Check flp Assessment & Plan (12/05/2015 12:51 PM EDT): She is following a low fat diet Assessment & Plan (08/01/2015 1:00 PM EDT): Check flp Hypertension 08/01/2015 Overview (08/01/2015): Impression: 03/21/2015 - bp is good Impression: 11/08/2014 - bp is good Impression: 07/05/2014 - bp is good Impression: 04/19/2014 - bp is good Impression: 03/01/2014 - bp is good Impression: 11/09/2013 - bp is good Impression: 07/06/2013 - bp is in good range; Assessment & Plan (01/05/2019 8:31 AM EDT): bp is high- will increase losartan to 100 mg daily and have her check bp at home - let us know if over 145/85 Assessment & Plan (05/19/2018 1:28 PM EST): bp is good Assessment & Plan (11/18/2017 3:31 PM EDT): bp well controlled off sharon, on arb and off ca ch aziza with change in diuretic She has had less swelling as well Assessment & Plan (07/29/2017 11:25 AM EDT): bp is good Assessment & Plan (01/28/2017 10:57 AM EST): bp is good Assessment & Plan (10/15/2016 11:46 AM EDT): bp is high- increase fluid pill to bid for 2-3 days and cut back on dietary salt Is swollen - may need to change to bumex or other alternative than dyazide if swelling continues Assessment & Plan (06/11/2016 11:26 AM EDT): bp is high- recheck 144/88 bp at home -discussed adding breannaura Assessment & Plan (08/01/2015 12:59 PM EDT): bp is good overall No changes for now Hypothyroidism 08/01/2015 Overview (08/01/2015): Impression: 03/21/2015 - check tfts Impression: 11/08/2014 - check tfts Impression: 07/05/2014 - check tsh Impression: 04/19/2014 - check tsh Impression: 11/09/2013 - check tft Impression: 07/06/2013 - check tft next ov, levels good at last testing; Assessment & Plan (01/05/2019 8:35 AM EDT): Check tfts Is on levothyroxine 75 mcg daily without missed doses or problems with dosing Assessment & Plan (05/19/2018 1:29 PM EST): Check tfts Assessment & Plan (11/18/2017 3:32 PM EDT): Recent normal tsh Assessment & Plan (07/29/2017 11:26 AM EDT): Check tfts Assessment & Plan (10/15/2016 11:48 AM EDT): Reviewed normal tsh 05/28 Assessment & Plan (06/11/2016 11:28 AM EDT): Check tfts Assessment & Plan (12/05/2015 12:50 PM EDT): Last tsh normal Assessment & Plan (08/01/2015 1:00 PM EDT): tsh normal 03/29 Adiposity 08/01/2015 Otitis externa 08/01/2015 Hypercalcemia 08/01/2015 Overview (08/01/2015): Check ion ca and cmp Assessment & Plan (01/05/2019 8:36 AM EDT): Check cmp Assessment & Plan (01/28/2017 10:59 AM EST): Check last ov normal Assessment & Plan (10/15/2016 11:49 AM EDT): cmp normal/ last check total calcium level was good Assessment & Plan (06/11/2016 11:28 AM EDT): Check ion ca and vitamin d Preventive measure Immunizations Immunization Administration Dates Next Due Pneumococcal, Unspecified 02/13/2012 Family History Medical History Relation Name Comments Cancer Father Hypertension Other 1 Diabetes Other 2 Grandmother type 2 Hypertension Other 2 Grandmother Relation Name Status Comments Father Other 1 Other 2 Grandmother Social History Tobacco Use Types Packs/Day Years Used Date Smoking Tobacco: Former Smokeless Tobacco: Never Alcohol Use Standard Drinks/Week Comments No 0 (1 standard drink = 0.6 oz pur e alcohol) Abuse Screen Answer Date Recorded Unsafe at Home or Work/School Not on file Feels Threatened by Someone? Not on file 11/2022 Does Anyone Keep You from Co ntacting Others or Doint Things Outside the Home? Not on file 12/20/2022 Physical Sign of Abuse Present Not on file 1 Housing Stability Answer Date Recorded Current Living Arrangements Not on file 11/2022 Potentially Unsafe Housing Conditions Not on kalen e 12/20/2022 Family and Community Support Answer Jaspreet e Recorded Help with Day-to-Day Activities Not on file 12/20/2022 Lonely or Isolated Not on file 12/20/2022 Employment Answer Date Recorded Do you want help finding or keeping work or a vitaly b? Not on file 12/20/2022 Disabilities Answer Date Recorded Concentrating, Remembering, or Making Decisions Difficulty Not on file 12/20/2022 Doing Errands Independently Difficulty Not on fi le 12/20/2022 Education Answer Date Recorded Help with school or training? Not on file Preferred Language Not on file 12/20/2022 Comments No Sex and Gender Information Value Date Recorded Sex Assigned at Not on file Legal Sex Female 10:07 AM EDT Gender Identity Not on file Sexual Orientation Not on file Last Filed Vital Signs Vital Sign Reading Time Taken Comments Blood Pressure 154/84 01/04/2019 1:22 PM EDT Pulse 58 01/04/2019 1:22 PM EDT Temperature - - Respiratory Rate 18 08/01/2015 12:30 PM EDT Oxygen Saturation 98% 01/04/2019 1:22 PM EDT Inhaled Oxygen Concentration - - Weight 116 kg (254 lb 12.8 oz) 01/04/2019 1:22 P M EDT Height 167.6 cm (5' 6 ) 01/04/2019 1:22 PM EDT Body Mass Index 41.13 01/04/2019 1:22 PM EDT Plan of Treatment Health Maintenance Due Date Last Done Comments DXA SCAN 1952 TDAP/TD VACCINES (1 - Tdap) 10/29/1971 COLOGUARD 1997 COLON CANCER SCREENING 5 YEA R SIGMOIDOSCOPY 1997 CT COLONOGRAPHY 1997 FECAL OCCULT BLOOD TEST 1997 FIT Testing (1 year) 1997 Pneumococcal Vaccine 50+ (1 of 1 - PCV) 2002 02/13/2012 ANNUAL PHYSICAL 10/21/2015 ZOSTER VACCINE (2 of 2) 03/25/2017 01/28/2017 (Decli fawn) MAMMOGRAM 01/28/2019 01/28/2017 LIPID PANEL 11/07/2020 11/08/2019, 10/12, 05/19/2018, Additional history exists COVID-19 Vaccine (1 - 2023-2 5 season) 2023 INFLUENZA VACCINE 12/12/2024 11/22/2019, , 11/06/2018, Additional history exists COLONOSCOPY 11/03/2028 11/03/2018, 01/28/2017 COLORECTAL CANCER SCREENING 11/03/2028 HEPATITIS C SCREENING Completed 01/28/2017, 017 URINE MICROALBUMIN-CREATININ E RATIO (uACR) Discontinued 05/19/2018, 07/29/2017, 06/11/2016 HEMOGLOBIN A1C Discontinued 11/08/2019, 12/13, 05/19/2018, Additional history exists Procedures Procedure Name Priority Date/Time Associated Diagnosis Comments POCT GLYCOSYLATED HEMOGLOBIN (HGB A1C) Routine 01/04/2019 1:36 PM EDT Type 2 diabetes mellitus without complication, with long-term current use of insulin MICROALBUMIN / CREATININE URINE RATIO Routine 05/19/2018 11:49 AM EST Type 2 diabetes mellitus without complication, with long-term current use of insulin LIPID PANEL Routine 05/19/2018 11:49 AM EST Mixed hyperlipidemia HEPATITIS C ANTIBODY Routine 01/28/2017 11:02 AM EST Abnormal liver function tests from Last 3 Months or Most Recently Relevant to Health Maintenance Results * POC Glycosylated Hemoglobin (Hb A1C) (01/04/2019 1:36 PM EDT) Hemoglobin A1C 5.2 % [facility] Blood 01/04/2019 1:36 PM EDT Aundrea Caldwell MD POINT OF CARE TEST ORDER BE Final Result [facility]
[address] [place] [address], * Microalbumin / Creatinine Urine Ratio - Urine, Clean Catch (05/19/2018 11:49 AM EST) Creatinine, Urine 68.5 Not Estab. mg/dL 05/21/2018 8:11 AM EDT [facility] Microalbumin, Urine <3.0 Not Estab. ug/mL 05/21/2018 8:11 AM EDT [facility] Microalbumin/Cr eatinine Ratio <4.4 0.0 - 30.0 mg/g creat 05/21/2018 8:11 AM EDT [facility] Comment: Normal: 0.0 - 30.0 Albuminuria: 31.0 - 300.0 Clinical albuminuria: >300.0 Urine Urine specimen collection, clean catch / Unknown Collection / Unknown 05/19/2018 11:49 AM EST 05/19/2018 11:49 AM EST Narrative [facility] - 05/21/2018 8:11 AM EDT Performed at: - [address], [place], [place] [id number] Business Analyst Intern: Kp Grider PhD, Phone: [phone] Aundrea Caldwell MD URINE ORDERABLES Final R esult Performing Organization Address City/[facility]/ZIP Co de Phone Number [facility] [address] [place] [address], [place] [phone] * Lipid Panel (05/19/2018 11:49 AM EST) Total Cholesterol 129 0 - 200 mg/dL 05/19/2018 7:20 PM EST [facility] Triglycerides 102 0 - 150 mg/dL 05/19/2018 7:20 PM EST [facility] HDL Cholesterol 57 40 - 60 mg/dL 05/19/2018 7:20 PM EST [facility] LDL Cholesterol 57 0 - 130 mg/dL 05/19/2018 7:20 PM [facility] Blood Venipuncture / Unknown 05/19/2018 11:49 AM EST 05/19/2018 11:49 AM EST [facility] - 05/19/2018 7:20 PM EST Cholesterol Reference Ranges: Desirable < 200 mg/dL Borderline 200-239 mg/dL High Risk > 239 mg/dL Triglyceride Reference Ranges: Normal < 150 mg/dL Borderline 150-199 mg/dL High 200-499 mg/dL Very High > 499 mg/dL HDL Reference Ranges: Low < 40 mg/dL High > 59 mg/dL LDL Reference Ranges: Optimal < 100 mg/dL Near Optimal 100-129 mg/dL Borderline 130-159 mg/dL High 160-189 mg/dL Very High > 189 mg/dL Aundrea Caldwell MD LAB BLOOD ORDERABLES Fin al Result [facility]
[address] [place] [address], [place] [phone] * Hepatitis C Antibody (01/28/2017 11:02 AM EST) Hepatitis C Ab Non-Reacti ve Non-Reacti ve 01/28/2017 3:36 PM EST [facility] Blood Venipuncture / Unknown 01/28/2017 11:02 AM EST 01/28/2017 11:02 AM EST Aundrea Caldwell MD LAB BLOOD ORDERABLES Fin al Result [facility]
[address] [place] [address], from Last 3 Months or Most Recently Relevant to Health Maintenance Insurance [employer] [id number] MEDICARE A & B Member Subscriber Plan / Payer (Ef fective 2017-Present) Name:Kendra Rosario Member ID:[id number] Relation to Subscriber:Self Name:Kendra Rosario Subscriber ID:[id number] Payer ID:[id number] Group ID:Not on file Type:Not on file Address: [facility] [id number] [address] [employer] Care Teams Crucible Packer Relationship Specialty Start Date End Date Gary Thacker MD [address] [place] [id number] PCP - General 10/28/14
--- OUTSIDE RECORDS SUMMARY | 2024-11-08 12:09 | XMS_ITS | Clinical Summary ---
Author Organization Healthcare Address [address] [place] [address] Care Team Providers Care Client Relations Specialist Name Role Phone Unavailable Primary Care Provider Unavailabl e Family History Medical History Relation Name Comments Arthritis Father Hyperlipidemia Father Hypertension Father Other cancer Father Hyperlipidemia Mother Hypertension Mother Obesity Mother Thyroid disease Mother Relation Name Status Comments Father Mother Social History Tobacco Use Types Packs/Day Years Used Date Smoking Tobacco: Former Alcohol Use Standard Drinks/Week Comments Yes 0 (1 standard drink = 0.6 oz pur e alcohol) Comments Unknown Sex and Gender Information Value Date Recorded Sex Assigned at Not on file Legal Sex Female 8:50 PM EDT Gender Identity Not on file Sexual Orientation Not on file Last Filed Vital Signs Vital Sign Reading Time Taken Comments Blood Pressure - - Pulse - - Temperature - - Respiratory Rate - - Oxygen Saturation - - Inhaled Oxygen Concentration - - Weight 123 kg (272 lb 0.1 oz) 10/29/2013 3:29 PM EDT Height 170.2 cm (5' 7 ) 10/29/2013 3:29 PM EDT Body Mass Index 42.6 10/29/2013 3:29 PM EDT Plan of Treatment Not on file
--- OUTSIDE RECORDS SUMMARY | 2024-11-08 12:09 | XMS_ITS ---
Author Organization Unknown TREATMENT PLAN [facility] Start Date Provider Encounter for Check-up [id number] [facility]
== END 2024-11-07 23:59 | disposition home or self-care (01) ==
LOC: LAB.DROPOF 11-08 12:07
PROVIDERS: PCP Family Medicine; Visit Provider Family Medicine
DX: E67.3 Hypervitaminosis D (principal); E11.9 Type 2 diabetes mellitus without complications; E03.9 Hypothyroidism, unspecified
CPT/HCPCS: 80053; 82306; 82652; 83036; 84443